=== PATIENT | female | born 1955 | race Caucasian/White ===

== ENCOUNTER 2019-02-21 08:40 | Day surgery (SDC) | payer OTHER ==
[2019-02-20 09:08] VITALS: BMI 29.2
[2019-02-21] MEDS ORDERED: MIDAZOLAM HCL 2 MG/2 ML SINGLE DOSE VIAL ONE (10:37)
[2019-02-21] MEDS ORDERED: PROPOFOL 20 ML ONE ×2 (10:37)
[2019-02-21] MEDS ORDERED: LIDOCAINE HCL 1%, 10 MG/ML (50 mL VIAL) IJ ONE (10:57)
[2019-02-21] MEDS ORDERED: KETOROLAC TROMETHAMINE 30 MG/1 ML VIAL ONE (10:58)
[2019-02-21] MEDS ORDERED: oxyCODONE HCL 5 MG TABLET PO PRN (11:31)
[2019-02-21] MEDS ORDERED: ACETAMINOPHEN 500 MG TABLET (FP) PO PRN (11:31)
[2019-02-21] MEDS ORDERED: ONDANSETRON 4 MG/2 ML VIAL IVPUSH PRN (11:31)
[2019-02-21] MEDS ORDERED: LACTATED RINGERS SOLUTION 1,000 ML IV SCH (11:45)
[2019-02-21] MEDS ORDERED: ACETAMINOPHEN INJECTION 100 ML IVPB ONE (11:47)
--- NOTE | 2019-02-21 12:11 | OP ---
DATE OF OPERATION: 02/21/2019 PREOPERATIVE DIAGNOSIS: Left breast papillary lesion. POSTOPERATIVE DIAGNOSIS: Left breast papillary lesion. PROCEDURE: Excision of left breast mass under ultrasound needle localization guidance. SURGEON: Mariaelena Oreilly MD ANESTHESIA: Local, IV sedation. ESTIMATED BLOOD LOSS: Minimal. COMPLICATIONS: None. This was a sterile procedure. INDICATIONS FOR PROCEDURE: Patient presented with a palpable mass in the left breast 12 to 2 o'clock retroareolar location. This was seen on ultrasound. A needle core biopsy showed a papillary lesion. My recommendation was excision. The procedure was discussed with all the questions answered. PROCEDURE IN DETAIL: Patient brought to [facility] in [place]. Taken into the operating room and after IV sedation and IV antibiotics the left breast was prepped. An intraoperative ultrasound was performed and a Kopans wire was used to localize the nodule in the left breast 12 to 2 o'clock retroareolar location under local anesthesia. The left breast was then prepped and draped in the usual sterile fashion. The area of the retroareolar outer left breast was anesthetized with 1% lidocaine without epinephrine. A periareolar incision was made in the outer left breast and a wire was used as a guide to get down to the area of interest. This was excised en bloc. Anteriorly I was up to dermis where this was a palpable mass in the 1 to 2 o'clock retroareolar location. The specimen was sent to Pathology for permanent section in formalin. Hemostasis assured with electrocautery. The parenchyma approximated with interrupted 2-0 Vicryl. Skin approximated with interrupted 2-0 Vicryl and running 4-0 Prolene. A sterile dressing with Tegaderm and 4 x 4's applied. She tolerated procedure well, was taken to recovery in good condition. Dee [id number]
[2019-02-21 13:23] VITALS: BP 112/78; PULSE 56; TEMP 97.5
--- NOTE | 2019-02-26 13:21 | PATH ---
Surgical Pathology Report Patient Name: MOHINI LUNDBERG [facility]. Rec. #: [id number] /Age/Gender: 1955 (Age: 63) / F Account: [id number] Location: [facility] SURGICAL Taken: 02/21/2019 Received: 02/21/2019 Reported: 02/26/2019 Physicians: Mariaelena Oreilly M.D. Specimen(s) Received LEFT BREAST WIRE LOCALIZED Clinical History Left breast mass Final Diagnosis BREAST, LEFT, WIRE LOCALIZED, EXCISION: INVASIVE PAPILLARY CARCINOMA, MODERATELY DIFFERENTIATED (TUBULE SCORE: 3/3, NUCLEAR GRADE: 2/3, MITOTIC SCORE: 1/3; TOTAL KARRIE SCORE: 6/9). INVASIVE CARCINOMA MEASURES 4 MM IN GREATEST MICROSCOPIC DIMENSION. FOCAL DUCTAL CARCINOMA IN SITU (DCIS), PAPILLARY TYPE, INTERMEDIATE NUCLEAR GRADE. NO LYMPHOVASCULAR INVASION IDENTIFIED. SURGICAL MARGINS ARE UNINVOLVED BY INVASIVE CARCINOMA; INVASIVE CARCINOMA IS 4 MM FROM INKED SURGICAL MARGIN. DCIS FOCALLY INVOLVES INKED SURGICAL MARGIN. REMAINDER OF BREAST PARENCHYMA SHOWS SCLEROSED INTRADUCTAL PAPILLOMA IN A BACKGROUND OF FIBROCYSTIC CHANGES INCLUDING STROMAL FIBROSIS, MICROCYSTS, APOCRINE METAPLASIA, USUAL DUCTAL HYPERPLASIA, AND ASSOCIATED MICROCALCIFICATIONS. PRIOR BIOPSY SITE CHANGES ARE PRESENT. PATHOLOGIC STAGE (pTNM): pT1a pNx. SEE INVASIVE CARCINOMA CASE SUMMARY BELOW. Comment: Immunohistochemical stains performed and interpreted at [facility] show lack of myoepithelial cells in the areas (periphery) of invasive papillary carcinoma (SMM-HC and p63), while present in DCIS. Comments Breast Invasive Carcinoma: Surgical Pathology Case Summary (Based on AJCC TNM 8 th edition) Procedure _X_ Excision (less than total mastectomy) Specimen Laterality _X_ Left Tumor Size _X_ Greatest dimension of largest invasive focus >1 mm (millimeters): 4 mm Histologic Type _X_ Invasive papillary carcinoma Histologic Grade (Karrie Histologic Score) Glandular (Acinar)/Tubular Differentiation _X_ Score 3 (<10% of tumor area forming glandular/tubular structures) Nuclear Pleomorphism _X_ Score 2 Mitotic Rate _X_ Score 1 Overall Grade _X_ Grade 2 (scores of 6) Tumor Focality _X_ Single focus of invasive carcinoma Ductal Carcinoma In Situ (DCIS) _X_ DCIS is present in specimen _X_ Negative for extensive intraductal component (EIC) Margins Invasive Carcinoma Margins _X_ Uninvolved by invasive carcinoma Distance from closest margin (millimeters): 4 mm Closest margin: Inked surgical margin DCIS Margins _X_ Positive for DCIS Specify margin(s): Inked surgical margin Regional Lymph Nodes _X_ No lymph nodes submitted or found Treatment Effect _X_ No known presurgical therapy Lymphovascular Invasion _X_ Not identified Pathologic Stage Classification (pTNM, AJCC 8th Edition) Primary Tumor (Invasive Carcinoma) (pT) _X_ pT1a: Tumor >1 mm but =5 mm in greatest dimension Category (pN) _X_ pNX: Regional lymph nodes cannot be assessed Biomarker Studies Results of ER and WI studies performed on this specimen (block# 6) at [facility] are as follows: ER (clone [id number] mouse monoclonal antibody by [employer]): ~30% nuclear staining with moderate to strong intensity (Positive). WI (clone16 mouse monoclonal antibody by [employer]): ~25% nuclear staining with moderate to strong intensity (Positive). Results of Her2 and Ki67 studies will be reported separately in an addendum. Positive and negative controls (internal if applicable) show appropriate results. Formalin fixation and cold ischemic times are within current ASCO/CAP recommendations for ER, WI and Her2 testing. Electronically Signed Amy Copeland M.D. Addendum Reported: 02/28/2019 Addendum Diagnosis Results of Her2 (IHC) & Ki-67 studies performed on block "6" at [place], [place] ([id number]) are as follows: Her2 IHC (EP3 from [employer], formerly known as [id number], using [employer] Polymer Refine detection kit): 0 (Negative). Ki-67: ~5% (Low proliferative index). Positive and negative controls (internal if applicable) show appropriate results. Amy Copeland M.D. Gross Description Received in formalin labeled "left breast wire localized excision," is a 3.7 x 3.1 x 1.5 cm portion of fibroadipose tissue with a needle localization wire present. There are no orienting sutures present. There is no skin or nipple present. The specimen is inked blue and serially sectioned. Sectioning reveals foci of white fibrous tissue. No definitive lesion is identified. The specimen is entirely and sequentially submitted in 7 cassettes. Time to formalin fixation: 2 minutes Total formalin fixation time: Approximately 7 hours. 02/21/2019 [facility]02/21/2019
== END 2019-02-21 13:10 | disposition home or self-care (01) ==
LOC: JASU-SURG 08:40
PROVIDERS: ATTEND Surgery
PROC: 0HBU3ZX Excision of Left Breast, Percutaneous Approach, Diagnostic (ICD-10-PCS; principal; 2019-02-21 10:00)
DX: C50.912 Malignant neoplasm of unspecified site of left female breast (principal)
CPT/HCPCS: 88307-TC; 88341-TC; 88342-TC; 94760; J0131

== ENCOUNTER 2019-03-28 05:29 | Day surgery (SDC) | payer OTHER ==
[2019-03-26 13:37] VITALS: BMI 28.9
[2019-03-28] MEDS ORDERED: LIDOCAINE HCL 1%, 10 MG/ML (20ML VIAL) ONE ×2 (13:29→13:30)
[2019-03-28] MEDS ORDERED: MIDAZOLAM HCL 2 MG/2 ML SINGLE DOSE VIAL ONE (14:04)
[2019-03-28] MEDS ORDERED: PROPOFOL 20 ML ONE (14:04)
[2019-03-28] MEDS ORDERED: LIDOCAINE HCL/PF 2% SDV 5ML VIAL ONE (14:08)
[2019-03-28] MEDS ORDERED: DEXAMETHASONE SOD PHOSPHATE 4 MG/1 ML VIAL ONE (14:08)
[2019-03-28] MEDS ORDERED: ceFAZolin SODIUM 1 GM VIAL ONE (14:11)
[2019-03-28] MEDS ORDERED: LIDOCAINE HCL 1%, 10 MG/ML (20ML VIAL) NR ONE (14:26)
[2019-03-28] MEDS ORDERED: ONDANSETRON 4 MG/2 ML VIAL IVPUSH PRN ×2 (14:30→15:48)
[2019-03-28] MEDS ORDERED: LACTATED RINGERS SOLUTION 1,000 ML IV SCH (14:30)
[2019-03-28] MEDS ORDERED: oxyCODONE HCL 5 MG TABLET PO PRN ×3 (14:30→15:48)
[2019-03-28] MEDS ORDERED: LORazepam 2 MG/ML SDV VIAL ONE (15:27)
--- NOTE | 2019-03-28 15:31 | SURG ---
Surgery Dental Assistant Teacher Note Dental Assistant Teacher: Ernesto Rios PA-C (Suzy) Date of Service: 03/28/19 Diagnosis: Left breast cancer Procedure: Left breast sentinel lymph node biopsy, left breast lumpectomy I was present for the entirety of the operative procedure. For further detail, please refer to operative report.
[2019-03-28] MEDS ORDERED: PROMETHAZINE HCL 25 MG/1 ML VIAL IVPB PRN (15:48)
[2019-03-28] MEDS ORDERED: LORazepam 2 MG/ML SDV VIAL IVPUSH ONE (16:00)
[2019-03-28] MEDS ORDERED: oxyCODONE HCL 5 MG TABLET PO ONE (16:45)
[2019-03-28] MEDS ORDERED: oxyCODONE HCL 5 MG TABLET ONE (16:47)
[2019-03-28 17:27] VITALS: BP 162/88; PULSE 76; TEMP 97.7
--- NOTE | 2019-03-28 20:04 | OP ---
DATE OF OPERATION: 03/28/2019 PREOPERATIVE DIAGNOSIS: Left breast cancer. POSTOPERATIVE DIAGNOSIS: Left breast lumpectomy, sentinel node biopsy. SURGEON: Mariaelena Oreilly M.D. ANESTHESIA: General. ESTIMATED BLOOD LOSS: Minimal COMPLICATIONS: None. This was a sterile procedure. INDICATION FOR PROCEDURE: The patient presented with a palpable mass, said a needle biopsy was atypia but on excision was an invasive carcinoma, and an intraductal papilloma appeared with positive margin on DCIS. Therefore, re-excision. The procedure was discussed with her including a sentinel node biopsy. PROCEDURE IN DETAIL: The patient was brought to [facility] and taken back to nuclear medicine where I injected technetium injection at the lumpectomy site in the left breast 1 o'clock location 3 cm from the nipple. She was then brought up to the operating room, and after induction of general anesthesia and IV antibiotics, 5 mL of isosulfan blue dye was injected into the left subareolar plexus as well as intraparenchymal in the upper outer left breast. The breast was massaged for 5 minutes. Next axilla was prepped and draped in usual sterile fashion. A 4-cm incision made in the left axilla, cutting down to the clavicle pectoral fascia to identify 5 sentinel lymph nodes. These were all sent to pathology for permanent section. Hemostasis assured with electrocautery. Once there was no other blue dye radioactivity per pathology for the lymph nodes in the left axilla, therefore once hemostasis was assured, the left breast lumpectomy was performed. A prior periareolar incision was made in the upper outer left breast was sharply incised and an en bloc lumpectomy was performed tagged with a long side lateral, short side superior, sent to pathology for permanent section. Anteriorly, I was at the dermis of the areola. Hemostasis assured with electrocautery. The parenchyma approximated with interrupted 2-0 Vicryl, skin approximated with interrupted 2-0 Vicryl running 4-0 Prolene. Sterile dressing with Tegaderm, 4x4s applied. She tolerated procedure well. The axillary incision was also closed in routine fashion with interrupted 2-0 Vicryl, running 4-0 Prolene. Sterile dressing with Tegaderm, 4x4s applied. She was extubated on the operating room table. The mammary binder was applied, and she was taken to recovery in good condition. Dee [id number]
--- NOTE | 2019-04-01 15:31 | PATH ---
Surgical Pathology Report Patient Name: MOHINI LUNDBERG [facility]. Rec. #: [id number] /Age/Gender: 1955 (Age: 63) / F Account: [id number] Location: [facility] SURGICAL Taken: 03/28/2019 Received: 03/31/2019 Reported: 04/01/2019 Physicians: Mariaelena Oreilly M.D. Specimen(s) Received A: LEFT AXILLARY SENTINEL LYMPH NODE #1 B: LEFT AXILLARY SENTINEL LYMPH NODE #2 C: LEFT AXILLARY SENTINEL LYMPH NODE #3 D: LEFT AXILLARY SENTINEL LYMPH NODE #4 E: LEFT AXILLARY SENTINEL LYMPH NODE #5 F: LEFT BREAST LUMPECTOMY Clinical History Left breast cancer Final Diagnosis A. AXILLARY SENTINEL LYMPH NODE #1, LEFT, EXCISION: ONE LYMPH NODE NEGATIVE FOR CARCINOMA (0/1). B. AXILLARY SENTINEL LYMPH NODE #2, LEFT, EXCISION: ONE LYMPH NODE NEGATIVE FOR CARCINOMA (0/1). C. AXILLARY SENTINEL LYMPH NODE #3, LEFT, EXCISION: ONE LYMPH NODE NEGATIVE FOR CARCINOMA (0/1). D. AXILLARY SENTINEL LYMPH NODE #4, LEFT, EXCISION: ONE LYMPH NODE NEGATIVE FOR CARCINOMA (0/1). E. AXILLARY SENTINEL LYMPH NODE #5, LEFT, EXCISION: ONE LYMPH NODE NEGATIVE FOR CARCINOMA (0/1). F. BREAST, LEFT, LUMPECTOMY: FOCAL ATYPICAL DUCTAL HYPERPLASIA PARTIALLY INVOLVING AN INTRADUCTAL PAPILLOMA. REMAINDER OF BREAST PARENCHYMA SHOWS INTRADUCTAL PAPILLOMA(S) IN A BACKGROUND OF CHANGES OF PRIOR BIOPSY AND FIBROCYSTIC CHANGES INCLUDING STROMAL FIBROSIS, MICROCYSTS, APOCRINE METAPLASIA, USUAL DUCTAL HYPERPLASIA WITH ASSOCIATED MICROCALCIFICATIONS. AJCC (TNM STAGE, 8TH ED): pT1a pN0(sn) (SEE COMMENT). Comment: T stage derived from tumor size in wide excision ([id number]). Electronically Signed Amy Copeland M.D. Gross Description A. Received in formalin labeled "left axillary sentinel lymph node #1," is a 1.0 x 0.6 x 0.6 cm lymph node with attached fat. The specimen is bisected and entirely submitted in one cassette. B. Received in formalin labeled "left axillary sentinel lymph node #2," is a 1.1 x 0.5 x 0.2 cm lymph node with attached fat. The specimen is submitted in toto in one cassette. C. Received in formalin labeled "left axillary sentinel lymph node #3," is a 1.4 x 0.9 x 0.5 cm lymph node with attached fat. The specimen is bisected and entirely submitted in one cassette. D. Received in formalin labeled "left axillary sentinel lymph node #4," is a 1.0 x 0.6 x 0.3 cm lymph node with attached fat. The specimen is submitted in toto in one cassette. E. Received in formalin labeled "left axillary sentinel lymph node #5," is a 1.3 x 1.0 x 0.5 cm lymph node with attached fat. The specimen is bisected and entirely submitted in one cassette. F. Received in formalin, labeled "left breast lumpectomy," is a 3.3 x 2.8 x 2.6 cm. valenzuela-yellow, irregular, portion of fibroadipose tissue. There is no needle location wire present. There is a short suture marking the superior aspect and a long suture marking the lateral aspect, per the surgeon. There is no skin or nipple present. The specimen is inked as follows: superior and lateral blue; inferior green; medial yellow; anterior red; deep black. The specimen is serially sectioned from superior to inferior. Sectioning reveals a 1.5 x 1.5 x 1.0 cm valenzuela, ill-defined, indurated mass surrounded by firm fat necrosis. The mass focally abuts the superior and lateral margins. The specimen is entirely and sequentially submitted in 11 cassettes with superior margin in cassette 1, the inferior margin in cassette 11 and the mass in cassette 1-3 (one bisected section each in cassettes 4/5, 02/28, 05/02). Total formalin fixation time: Approximately 72 hours 03/31/201903/31/2019
== END 2019-03-28 17:25 | disposition home or self-care (01) ==
LOC: JASU-SURG 05:29
PROVIDERS: ATTEND Surgery
PROC: 0HBU0ZZ Excision of Left Breast, Open Approach (ICD-10-PCS; principal; 2019-03-28 12:00)
DX: C50.912 Malignant neoplasm of unspecified site of left female breast (principal)
CPT/HCPCS: 78195-TC; 88307-TC; 94760; A9541